=== PATIENT | male | born 1955 | race Caucasian/White ===

== ENCOUNTER 2020-09-08 04:08 | Emergency (ER) | payer MEDICARE, OTHER ==
[~2020-09-08 04:08] MED LIST: IBU400 MG PO
[2020-09-08 05:50] LABS: HEMOGLOBIN 13.3 gm/dl (14.0-17.5); RED BLOOD COUNT 4.45 M/UL (4.20-5.50); WHITE BLOOD COUNT 5.9 K/UL (4.5-11.0)
[2020-09-08 06:04] LABS: BUN/CREATININE RATIO 21 (0-10)
[2020-09-08] MEDS ORDERED: ZOFRAN ODT 4 MG4 MG PO (07:10)
[2020-09-08] MEDS ORDERED: NORCO 5-325 TA1 EACH PO (07:10)
[2020-09-08] MEDS ORDERED: FLOMAX 0.4 MG0.4 MG PO (07:10)
== END 2020-09-08 07:42 | disposition home or self-care (01) ==
LOC: ER1 04:08
PROVIDERS: Emergency Medicine
DX: N13.2 Hydronephrosis with renal and ureteral calculous obstruction (principal); Z86.79 Personal history of other diseases of the circulatory system
CPT/HCPCS: 80053; 81001; 83690; 85025; 96374; 96375; 96376; 99284; J2270; J2405; J7040

== ENCOUNTER → 2020-12-23 | Outpatient (CLI) | payer MEDICARE, OTHER ==
[~2020-12-23] MED LIST changes: +FLOMAX 0.4 MG0.4 MG PO; +NORCO 5-325 TA1 EACH PO; +ZOFRAN ODT 4 MG4 MG PO
== END ==
LOC: HEART 5 08:49
DX: I25.10 Atherosclerotic heart disease of native coronary artery without angina pectoris (principal)
CPT/HCPCS: 93306

== ENCOUNTER → 2021-07-08 | Outpatient (CLI) | payer MEDICARE, OTHER ==
[2021-07-08 09:48] LABS: HEMOGLOBIN 13.8 gm/dl (14.0-17.5); RED BLOOD COUNT 4.38 M/UL (4.20-5.50); WHITE BLOOD COUNT 5.3 K/UL (4.5-11.0)
[2021-07-08 10:08] LABS: BUN/CREATININE RATIO 20 (0-10)
== END ==
LOC: LAB 09:17
PROVIDERS: Emergency Medicine; Internal Medicine Cardiovascular Disease
DX: I12.9 Hypertensive chronic kidney disease with stage 1 through stage 4 chronic kidney disease, or unspecified chronic kidney disease (principal); E11.22 Type 2 diabetes mellitus with diabetic chronic kidney disease; N18.2 Chronic kidney disease, stage 2 (mild)
CPT/HCPCS: 36415; 80053; 80061; 83036; 85025

== ENCOUNTER → 2021-12-24 | Outpatient (CLI) | payer MEDICARE, OTHER ==
[~2021-12-24] MED LIST changes: +CITRATE OF MAG296 ML PO
== END ==
LOC: NM 09:00
DX: R10.11 Right upper quadrant pain (principal)
CPT/HCPCS: 78227; A9537; J2805

== ENCOUNTER → 2022-01-18 | Outpatient (CLI) | payer MEDICARE, OTHER ==
[2022-01-18 10:52] LABS: HEMOGLOBIN 13.7 gm/dl (14.0-17.5); RED BLOOD COUNT 4.52 M/UL (4.20-5.50); WHITE BLOOD COUNT 6.2 K/UL (4.5-11.0)
[2022-01-20 10:16] LABS: CHOLESTEROL, TOTAL 133 mg/dL (100-199); HDL SIZE 8.3 nm (>=9.2); HDL-C 36 mg/dL (>39); HDL-P (TOTAL) 30.8 umol/L (>=30.5); LARGE HDL-P <1.3 umol/L (>=4.8); LARGE VLDL-P 6.2 nmol/L (<=2.7); LDL SIZE 19.6 nm (>20.5); LDL SIZE 19.6 nm (>=20.8); LDL-C 67 mg/dL (0-99); LDL-P 935 nmol/L (<1000); LP-IR SCORE 79 (<=45); SMALL LDL-P 790 nmol/L (<=527); TRIGLYCERIDES 179 mg/dL (0-149); VLDL SIZE 52.8 nm (<=46.6)
== END ==
LOC: LAB 09:54
PROVIDERS: Emergency Medicine
DX: E78.2 Mixed hyperlipidemia (principal); N18.2 Chronic kidney disease, stage 2 (mild); E11.65 Type 2 diabetes mellitus with hyperglycemia
CPT/HCPCS: 36415; 80053; 80061; 83036; 83704; 84550; 85025

== ENCOUNTER 2022-01-23 18:29 | Emergency (ER) | payer MEDICARE, OTHER ==
[2022-01-23 19:34] LABS: HEMOGLOBIN 12.4 gm/dl (14.0-17.5); RED BLOOD COUNT 4.03 M/UL (4.20-5.50); WHITE BLOOD COUNT 7.1 K/UL (4.5-11.0)
[2022-01-23 19:41] LABS: BUN/CREATININE RATIO 15 (0-10)
[2022-01-23] MEDS ORDERED: TAMIFLU75 MG PO (21:14)
[2022-01-23] MEDS ORDERED: CEPHALEXIN500 MG PO (21:41)
== END 2022-01-23 21:58 | disposition home or self-care (01) ==
LOC: ER1 18:29
PROVIDERS: Preventive Medicine Occupational Medicine
DX: J10.1 Influenza due to other identified influenza virus with other respiratory manifestations (principal); I25.10 Atherosclerotic heart disease of native coronary artery without angina pectoris; E11.9 Type 2 diabetes mellitus without complications; Z20.822 Contact with and (suspected) exposure to COVID-19
CPT/HCPCS: 0240U; 71045; 80053; 81001; 82009; 82140; 82550; 82553; 83605; 83690; 84484; 85025; 85652; 86140; 86403; 87081; 87086; 87880; 99285; J2405; J7030